=== PATIENT | male | born 1960 | race Hispanic/Latino ===

== ENCOUNTER 2017-06-13 06:31 | Emergency (ER) | payer MEDICAID, OTHER ==
[2017-06-13 07:06] VITALS: PULSE 74; RESP 18; TEMP 98.1; O2SAT 99; BMI 34.0
--- NOTE | 2017-06-13 07:25 | ED PDOC ---
Arrival/HPI - General Chief Complaint: Lower Extremity Problem/Injury Time Seen by Provider: 06/13/17 07:09 Historian: Patient - History of Present Illness Narrative History of Present Illness (Text): 06/13/17 07:21 A 56 year old male whose past medical history includes hypertension, diabetes, and gout to the right great toe, presents to the emergency department with 2 day duration right ankle pain and swelling. The patient denies any trauma or injury, but notes that May 25 he jumped off of a ledge and did not experience any pain to his ankle then. The patient denies fevers, chills, headache, dizziness, chest pain, shortness of breath, dyspnea on exertion, cough , abdominal pain, nausea, vomiting, diarrhea, back pain, neck pain, urinary/ bowel changes, or any other complaint. PMD: Dr. Tal Rizo Time/Duration: Other (2 Days) Symptom Onset: Sudden Symptom Course: Unchanged Activities at Onset: Rest, Light Context: Home Past Medical History - Provider Review Nursing Documentation Reviewed: Yes - Infectious Disease Hx of Infectious Diseases: None - Tetanus Immunization Tetanus Immunization: Unknown - Cardiac Hx Cardiac Disorders: Yes Hx Hypertension: Yes - Pulmonary Hx Respiratory Disorders: No - Neurological Hx Transient Ischemic Attacks (TIA): Yes Hx Vertigo: Yes (2 years ago.) - HEENT Hx HEENT Disorder: Yes (eyeglasses) - Renal Hx Renal Disorder: No - Endocrine/Metabolic Hx Diabetes Mellitus Type 2: Yes - Hematological/Oncological Hx Blood Disorders: No - Integumentary Hx Dermatological Disorder: No - Musculoskeletal/Rheumatological Hx Musculoskeletal Disorders: No Hx Falls: No - Gastrointestinal Hx Gastrointestinal Disorders: No - Genitourinary/Gynecological Hx Bladder Stone: Yes - Psychiatric Hx Anxiety: Yes Hx Substance Use: No - Past Surgical History Past Surgical History: Non-Contributing - Anesthesia Hx Anesthesia: No Hx Anesthesia Reactions: No Hx Malignant Hyperthermia: No - Suicidal Assessment Feels Threatened In Home Enviroment: No Family/Social History - Physician Review Nursing Documentation Reviewed: Yes Family/Social History: No Known Family HX Smoking Status: Never Smoked Hx Alcohol Use: Yes Hx Substance Use: No Hx Substance Use Treatment: No Allergies/Home Meds Allergies/Adverse Reactions: Allergies Penicillins Adverse Reaction (Verified 03/03/16 21:07) RASH Home Medications: Home Meds Medication Instructions Recorded Confirmed Valsartan [Diovan] 320 mg PO DAILY 09/17/16 06/13/17 metFORMIN [glucOPHAGE] 1,000 mg PO BID 09/17/16 06/13/17 Review of Systems - Physician Review All systems were reviewed & negative as marked: Yes - Review of Systems Constitutional: absent: Fevers, Night Sweats ENT: absent: Sore Throat Respiratory: absent: SOB, Cough Cardiovascular: absent: Chest Pain, BLANCHARD Gastrointestinal: absent: Abdominal Pain, Stool Changes, Diarrhea, Nausea, Vomiting Genitourinary Male: absent: Urinary Output Changes Musculoskeletal: Other (2 day duration, right ankle pain and swelling). absent : Back Pain, Neck Pain Neurological: absent: Headache, Dizziness Physical Exam Vital Signs Reviewed: Yes Vital Signs Temp Pulse Resp BP Pulse Ox 06/13/17 08:35 74 18 149/99 H 06/13/17 07:06 98.1 F 74 18 143/102 H 99 06/13/17 07:04 98.1 F 74 18 143/102 H 99 Temperature: Afebrile Blood Pressure: Hypertensive Pulse: Regular Respiratory Rate: Normal Appearance: Positive for: Well-Appearing, Non-Toxic, Comfortable Pain Distress: None Mental Status: Positive for: Alert and Oriented X 3 - Systems Exam Head: Present: Atraumatic, Normocephalic Pupils: Present: PERRL Extroacular Muscles: Present: EOMI Conjunctiva: Present: Normal Mouth: Present: Moist Mucous Membranes Neck: Present: Normal Range of Motion Respiratory/Chest: Present: Clear to Auscultation, Good Air Exchange. No: Respiratory Distress, Accessory Muscle Use Cardiovascular: Present: Regular Rate and Rhythm, Normal S1, S2. No: Murmurs Abdomen: Present: Normal Bowel Sounds. No: Tenderness, Distention, Peritoneal Signs Back: Present: Normal Inspection Upper Extremity: Present: Normal Inspection. No: Cyanosis, Edema Lower Extremity: Present: NORMAL PULSES, Tenderness (Right lateral malleolus), Swelling (right lateral malleolus). No: CALF TENDERNESS Neurological: Present: GCS=15, CN II-XII Intact, Speech Normal Skin: Present: Warm, Dry, Normal Color. No: Rashes Psychiatric: Present: Alert, Oriented x 3, Normal Insight, Normal Concentration Medical Decision Making ED Course and Treatment: 06/13/17 07:27 Impression: A 56 year old male presents with 2 day duration right ankle pain and swelling. On exam, tenderness and swelling to the right lateral malleolus. Differential Diagnosis included but are not limited to: Fracture vs. Sprain vs. Gout Plan: -- Right Ankle X-Ray -- Motrin -- Reassess and disposition Prior Visits: Notes and results from previous visits were reviewed. Patient was last seen in the emergency department on 09/17/2016. The patient was treated for an insect bite on the left side of his face and left forearm. Patient was discharged home on Clindamycin. Progress Notes: Right Ankle Radiographs Dictator : Emily Adam MD Report Date : 06/13/2017 08:29:53 IMPRESSION: No acute fracture or dislocation. 06/13/17 08:18: Patient's ankle was joann wrapped and air cast braced. He was given a surgical shoe and crutches. The patient was advised to follow up with PMD. - RAD Interpretation Radiology Orders: 06/13/17 07:15 ANKLE RIGHT 3 VIEWS ROUTINE [RAD] Stat - Medication Orders Current Medication Orders: Discontinued Medications Ibuprofen (Motrin Tab) 600 mg PO STAT STA Stop: 06/13/17 07:16 Last Admin: 06/13/17 07:22 Dose: 600 mg MAR Pain/Vitals Document 06/13/17 07:22 AR (Rec: 06/13/17 07:23 [id number] Pain Reassessment Is This A Pain ReAssessment? No Sleep Is patient sleeping during reassessment? No Presence of Pain Presence of Pain Yes Pain Scale Used Pain Scale Used Numeric Location Left, Right or Bilateral Right Pain Location Body Site Ankle Description Intermittent Intensity 7 Scale Used Numeric Aggravating Factors Changing Position Exercise/Activity - Scribe Statement The provider has reviewed the documentation as recorded by the Scribe Sabrina Barcenas Provider Scribe Attestation: All medical record entries made by the Scribe were at my direction and personally dictated by me. I have reviewed the chart and agree that the record accurately reflects my personal performance of the history, physical exam, medical decision making, and the department course for this patient. I have also personally directed, reviewed, and agree with the discharge instructions and disposition. Disposition/Present on Arrival - Present on Arrival Any Indicators Present on Arrival: No History of DVT/PE: No History of Uncontrolled Diabetes: No Urinary Catheter: No History of Decub. Ulcer: No History Surgical Site Infection Following: None - Disposition Have Diagnosis and Disposition been Completed?: Yes Diagnosis: Ankle sprain Disposition: HOME/ ROUTINE Disposition Time: 08:30 Patient Plan: Discharge Condition: IMPROVED Discharge Instructions (ExitCare): Ankle Sprain (ED), Tendinitis (ED) Additional Instructions: Mr Ryan, thank you for letting us take care of you today. Your provider was Dr. Esquivel. You were treated for Ankle Strain/Tendonitis. The emergency medical care you received today was directed at your acute symptoms. If you were prescribed any medication, please fill it and take as directed. It may take several days for your symptoms to resolve. Return to the Emergency Department if your symptoms worsen, do not improve, or if you have any other problems. Please contact your doctor or call one of the physicians/clinics you have been referred to that are listed on the Patient Visit Information form that is included in your discharge packet. Bring any paperwork you were given at discharge with you along with any medications you are taking to your follow up visit. Our treatment cannot replace ongoing medical care by a primary care provider (PCP) outside of the emergency department. Thank you for allowing the [facility] team to be part of your care today. If you had an X-Ray or CT scan: A Radiologist will review the ED reading if any change in treatment is needed we will contact you. If you had a blood, urine, or wound culture: It will take several days for the results, if any change in treatment is needed we will contact you. If you had an STI test: It will take 48 hours for the results. Please call after 1 week if you have not heard back. Prescriptions: Ibuprofen [Motrin] 600 mg PO Q6 PRN #30 tab PRN Reason: Pain, Moderate (4-7) Referrals: Claude Almeida DO [Staff Provider] - Follow up with primary Tal Rizo MD [Primary Care Provider] - Follow up with primary Forms: [employer] (Chinese), WORK NOTE
--- NOTE | 2017-06-13 08:31 | RAD ---
PROCEDURE: Right Ankle Radiographs. HISTORY: fall r/o fx COMPARISON: None FINDINGS: BONES: Bone alignment and mineralization are normal. There is no acute displaced fracture or bone destruction. There is a prominent plantar calcaneal spur. There is a large dorsal calcaneal enthesophytes. Well corticated ossific densities adjacent to the cuboid are most compatible with accessory ossification centers or old trauma. JOINTS: Normal. No osteoarthritis. Ankle mortise maintained. Talar dome intact SOFT TISSUES: Normal. OTHER FINDINGS: None. IMPRESSION: No acute fracture or dislocation.
[2017-06-13 08:35] VITALS: BP 149/99
== END 2017-06-13 08:37 | disposition home or self-care (01) ==
LOC: ED 06:31
DX: S93.401A Sprain of unspecified ligament of right ankle, initial encounter (principal); X58.XXXA Exposure to other specified factors, initial encounter; E11.9 Type 2 diabetes mellitus without complications; I10 Essential (primary) hypertension

== ENCOUNTER 2018-11-12 08:05 | Outpatient (CLI) | payer MEDICAID | END 2018-11-12 08:06 | disposition home or self-care (01) | LOC: RAD 08:05 | DX: N20.0 Calculus of kidney (principal) ==